=== PATIENT | female | born 1940 | race Caucasian/White ===

== ENCOUNTER → 2023-10-13 | Outpatient (REF) | payer MEDICARE ==
[~2023-10-13] MED LIST: AMLO1TAB24 PO; CEFD1CAP9 PO; FLAG500T PO; LABE100T6 PO; LOSA50TA28 PO; PANT40TA29 PO; SIMV20TA22 PO
== END ==
LOC: M SFHCDERM 14:05
PROVIDERS: ATTEND Dermatology
DX: Z51.89 Encounter for other specified aftercare (principal)